=== PATIENT | female | born 1980 | race Caucasian/White ===

== ENCOUNTER 2024-05-29 19:34 | Inpatient (IN) | payer OTHER ==
[~2024-05-29] VITALS: Ht 152.4 cm; Wt 68.0 kg
[2024-05-29] MEDS: Morphine 4mg INJECTION 4 MG/ML INJ IV STA (20:18)
[2024-05-29] MEDS: ONDANSETRON HCL INJ 2MG/ML 2ML 2 MG/ML VIAL IV STA (20:18)
[2024-05-29 20:21] LABS: BASOPHILS # (AUTO) 0.1 (0.0-0.1); BASOPHILS % 0.8 % (0.0-1.0); EOSINOPHILS # (AUTO) 0.5 (0.0-0.4); EOSINOPHILS % 5.8 % (0.0-6.0); HEMATOCRIT 39.7 % (34.2-44.1); HEMOGLOBIN 11.4 g/dL (12.0-16.0); LYMPHOCYTES # (AUTO) 1.9 (1.0-3.2); LYMPHOCYTES % 24.4 % (18.0-39.1); MEAN CORPUSCULAR HEMOGLOBIN 21.2 pg (28-32); MEAN CORPUSCULAR HGB CONC 28.7 g/dL (31-35); MEAN CORPUSCULAR VOLUME 73.9 fL (81-99); MONOCYTES # (AUTO) 0.6 (0.2-0.8); MONOCYTES % 7.2 % (4.4-11.3); NEUTROPHILS # (AUTO) 4.8 (2.1-6.9); NEUTROPHILS % 61.7 % (38.7-80.0); PLATELET COUNT 363 x10e3/uL (140-360); RED BLOOD COUNT 5.37 x10e6/uL (3.6-5.1); RED CELL DISTRIBUTION WIDTH 17.7 % (11.7-14.4); WHITE BLOOD COUNT 7.76 x10e3/uL (4.8-10.8)
[2024-05-29 20:36] LABS: ALANINE AMINOTRANSFERASE 15 IU/L (0-55); ALBUMIN 3.7 g/dL (3.5-5.0); ALBUMIN/GLOBULIN RATIO 0.9 (0.8-2.0); ALKALINE PHOSPHATASE 95 IU/L (40-150); BILIRUBIN,TOTAL 0.3 mg/dL (0.2-1.2); BLOOD UREA NITROGEN < 5 mg/dL (7-26); CALCIUM 9.3 mg/dL (8.4-10.2); CARBON DIOXIDE 22 mmol/L (22-29); CHLORIDE 109 mmol/L (98-107); CREATININE, SERUM 0.82 mg/dL (0.57-1.11); EST GLOMERULAR FILTRATION RATE 92 ML/MIN (>=60); GLUCOSE 80 mg/dL (74-118); SODIUM 141 mmol/L (136-145); TOTAL PROTEIN 7.6 g/dL (6.5-8.1)
[2024-05-29 20:39] LABS: BUN/CREATININE RATIO 6 (6-25)
[2024-05-29] MEDS ORDERED: IOPAMIDOL 370 MG/ML 100 ML INFUS..BTL INJ ONE (20:57)
[2024-05-29 21:45] VITALS: TEMP 98.7
[2024-05-29] MEDS ORDERED: ONDANSETRON HCL INJ 2MG/ML 2ML 2 MG/ML VIAL ONE (22:00)
[2024-05-29] MEDS: Morphine 4mg INJECTION 4 MG/ML INJ IV ONE (22:24)
[2024-05-29] MEDS: KETOROLAC TROMETHAMINE 30 MG/ML VIAL IV STA (22:25)
[2024-05-29] MEDS ORDERED: ONDANSETRON HCL INJ 2MG/ML 2ML 2 MG/ML VIAL IV PRN (22:30)
[2024-05-29] MEDS ORDERED: SODIUM CHLORIDE 0.9% 1000ML 1,000 ML IV SCH (22:30)
[2024-05-29] MEDS ORDERED: Morphine 4mg INJECTION 4 MG/ML INJ IV PRN (22:30)
[2024-05-30] VITALS (9 sets, daily range): BP systolic 122–157; BP diastolic 58–95; PULSE 77–87; RESP 18–20; TEMP 97.3–97.9; O2SAT 98–100
[2024-05-30] MEDS: SODIUM CHLORIDE 0.9% 1000ML 1,000 ML IV SCH ×2 (00:45→21:20)
[2024-05-30] MEDS: Morphine 4mg INJECTION 4 MG/ML INJ IV ONE ×2 (00:45→02:25)
[2024-05-30] MEDS: APIXABAN 5 MG TABLET PO SCH (01:00)
[2024-05-30] MEDS: ONDANSETRON HCL INJ 2MG/ML 2ML 2 MG/ML VIAL IV PRN (02:59)
[2024-05-30] MEDS: Morphine 4mg INJECTION 4 MG/ML INJ IV PRN (03:00)
[2024-05-30 07:13] LABS: BASOPHILS # (AUTO) 0.1 (0.0-0.1); BASOPHILS % 0.7 % (0.0-1.0); EOSINOPHILS # (AUTO) 0.4 (0.0-0.4); EOSINOPHILS % 6.5 % (0.0-6.0); HEMATOCRIT 34.9 % (34.2-44.1); HEMOGLOBIN 9.9 g/dL (12.0-16.0); LYMPHOCYTES # (AUTO) 2.1 (1.0-3.2); LYMPHOCYTES % 30.2 % (18.0-39.1); MEAN CORPUSCULAR HEMOGLOBIN 20.9 pg (28-32); MEAN CORPUSCULAR HGB CONC 28.4 g/dL (31-35); MEAN CORPUSCULAR VOLUME 73.8 fL (81-99); MONOCYTES # (AUTO) 0.6 (0.2-0.8); MONOCYTES % 8.7 % (4.4-11.3); NEUTROPHILS # (AUTO) 3.7 (2.1-6.9); NEUTROPHILS % 53.6 % (38.7-80.0); PLATELET COUNT 299 x10e3/uL (140-360); RED BLOOD COUNT 4.73 x10e6/uL (3.6-5.1); RED CELL DISTRIBUTION WIDTH 17.7 % (11.7-14.4); WHITE BLOOD COUNT 6.82 x10e3/uL (4.8-10.8)
[2024-05-30 08:06] LABS: ALBUMIN 3.1 g/dL (3.5-5.0); ALBUMIN/GLOBULIN RATIO 0.9 (0.8-2.0); ANION GAP 11.2 mmol/L (8-16); BILIRUBIN,TOTAL 0.2 mg/dL (0.2-1.2); CALCIUM 8.7 mg/dL (8.4-10.2); CREATININE, SERUM 0.87 mg/dL (0.57-1.11); TOTAL PROTEIN 6.4 g/dL (6.5-8.1)
[2024-05-30 08:08] LABS: POTASSIUM 3.2 mmol/L (3.5-5.1)
[2024-05-31] VITALS (7 sets, daily range): BP systolic 137–146; BP diastolic 78–101; PULSE 70–88; RESP 17–18; TEMP 97.4–98; O2SAT 97–100
[2024-05-31] MEDS: HYDROMORPHONE 1MG/1ML INJ IV PRN ×2 (08:42→13:56)
[2024-05-31 09:03] LABS: BASOPHILS % 0.7 % (0.0-1.0); EOSINOPHILS # (AUTO) 0.5 (0.0-0.4); HEMATOCRIT 36.2 % (34.2-44.1); HEMOGLOBIN 9.9 g/dL (12.0-16.0); LYMPHOCYTES # (AUTO) 1.9 (1.0-3.2); LYMPHOCYTES % 34.4 % (18.0-39.1); MEAN CORPUSCULAR HEMOGLOBIN 20.7 pg (28-32); MEAN CORPUSCULAR HGB CONC 27.3 g/dL (31-35); MEAN CORPUSCULAR VOLUME 75.6 fL (81-99); MONOCYTES # (AUTO) 0.4 (0.2-0.8); MONOCYTES % 6.8 % (4.4-11.3); NEUTROPHILS # (AUTO) 2.7 (2.1-6.9); NEUTROPHILS % 48.9 % (38.7-80.0); PLATELET COUNT 323 x10e3/uL (140-360); RED BLOOD COUNT 4.79 x10e6/uL (3.6-5.1); RED CELL DISTRIBUTION WIDTH 17.4 % (11.7-14.4); WHITE BLOOD COUNT 5.56 x10e3/uL (4.8-10.8)
[2024-05-31 09:22] LABS: ALBUMIN 3.2 g/dL (3.5-5.0); ANION GAP 15.6 mmol/L (8-16); BILIRUBIN,TOTAL 0.3 mg/dL (0.2-1.2); CALCIUM 8.7 mg/dL (8.4-10.2); CREATININE, SERUM 0.81 mg/dL (0.57-1.11); POTASSIUM 3.6 mmol/L (3.5-5.1); TOTAL PROTEIN 6.4 g/dL (6.5-8.1)
[2024-05-31] MEDS ORDERED: NALOXONE HCL INJ 0.4 MG/ML AMP IV PRN (13:45)
[2024-05-31] MEDS: HYDROCODONE/APAP 7.5MG-325MG 1 EA TAB PO PRN (15:23)
[2024-05-31] MEDS ORDERED: ELIQUIS5 MG PO (19:36)
[2024-05-31] MEDS ORDERED: AUGMENTIN 500-1 EACH PO (19:36)
[2024-05-31] MEDS ORDERED: ONDANSETRON ODT4 MG PO (19:36)
[2024-06-02] MEDS ORDERED: ACETAMINOPHEN-1 EAC4 PO (17:04)
== END 2024-05-31 20:33 | disposition home or self-care (01) | DRG 300 ==
LOC: ER 19:40 → ERHOLD 05-30 00:41 → MED/SURG2 05-30 02:09 → OBSVTOIN 05-31 11:05
PROVIDERS: ADMIT Internal Medicine; ATTEND Internal Medicine
DX: I82.811 Embolism and thrombosis of superficial veins of right lower extremity (principal); L03.115 Cellulitis of right lower limb; I10 Essential (primary) hypertension; Z90.49 Acquired absence of other specified parts of digestive tract; F17.200 Nicotine dependence, unspecified, uncomplicated
CPT/HCPCS: 36415; 80053; 85025; 93306; 93971; 99284; G0378; J1170; J1885; J2270; J2405; J2543; J7030; Q9967

== ENCOUNTER 2024-06-01 17:53 | Emergency (ER) | payer OTHER ==
[~2024-06-01] VITALS: Ht 152.4 cm; Wt 70.3 kg
[~2024-06-01 17:53] MED LIST: AUGMENTIN 500-1 EACH PO; ELIQUIS5 MG PO; ONDANSETRON ODT4 MG PO
[2024-06-01 18:00] VITALS: TEMP 98.2
[2024-06-01] MEDS: ACETAMINOPHEN/CODEINE 300MG - 30MG TAB PO ONE (19:19)
[2024-06-01 19:30] VITALS: PULSE 84; RESP 16; O2SAT 98
[2024-06-02] MEDS ORDERED: ACETAMINOPHEN-1 EAC4 PO (17:04)
== END 2024-06-01 19:30 | disposition home or self-care (01) ==
LOC: ER 18:01
DX: M79.604 Pain in right leg (principal); I80.01 Phlebitis and thrombophlebitis of superficial vessels of right lower extremity; I10 Essential (primary) hypertension
CPT/HCPCS: 99282